=== PATIENT | male | born 1990 ===

== ENCOUNTER 2024-06-21 09:15 | Emergency (ER) | payer OTHER, SELFPAY ==
--- NOTE | ~2024-06-21 | XR_ITS ---
EXAMINATION: XR HAND, RIGHT CLINICAL INFORMATION: pain, injury . Concern for scaphoid injury. COMPARISON: None available. TECHNIQUE: PA, lateral, and oblique views of the right hand. FINDINGS: Soft tissue marker positioned at the level of the first metacarpal. There is angulation and apparent cortical offset of the radial aspect of the distal scaphoid, only visualized on one view. This raises the possibility of a fracture. No definite first metacarpal fracture is seen. There is bony overlap of the trapezium and trapezoid limiting evaluation. Osseous overlap at the carpometacarpal joints otherwise, with associated limitation in evaluation. No additional acute fracture is identified. XR/XR hand RT min 3V IMPRESSION: Angulation and apparent cortical offset of the radial aspect of the distal scaphoid, from possible fracture. No additional acute fractures identified. Bony overlap at the carpometacarpal joints limiting evaluation. Further evaluation with CT scan as clinically indicated. Electronically signed by: Mesfin Hand MD 06/21/2024 11:37 AM [facility]
--- NOTE | ~2024-06-21 | CT_ITS ---
EXAMINATION: CT HAND WITHOUT CONTRAST, RIGHT CLINICAL INFORMATION: Thumb pain. Evaluate scaphoid fracture. COMPARISON: X-ray from the same day TECHNIQUE: Axial imaging. Sagittal and coronal reconstructions. This CT examination was performed using dose optimization techniques as appropriate, variously including the following: *Automated exposure control *Adjustment of mA and/or kV according to patient size (this includes techniques or standardized protocols for targeted exams where dose is matched to indication/reason for exam; i.e. extremities or head) *Use of iterative reconstruction technique DLP: 125 mGy-cm FINDINGS: No acute scaphoid fracture is seen. No acute fracture otherwise identified. At the first CMC joint, the base of the first metacarpal is partially radially positioned with respect to the trapezium; this could be related to physiological variation versus partial subluxation. No acute fracture is identified in this region. The joint spaces are maintained. No erosive changes. Mild dorsal subcutaneous edema of the first digit. No fluid collection is seen. Limited evaluation of the tendons of CT. CT/CT hand RT wo IV con IMPRESSION: No CT evidence of acute scaphoid fracture. No acute fracture is otherwise identified. First CMC joint findings, described above, could be related to physiological variation versus partial subluxation. Clinically correlate. If there is clinical concern for radiographically occult osseous, soft tissue or ligamentous injury, orthopedic consultation and further imaging can be considered. Electronically signed by: Mesfin Hand MD 06/21/2024 02:42 PM [facility]
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
[2024-06-21 09:23] VITALS: BP 156/95; PULSE 72; O2SAT 100
[2024-06-21 09:25] VITALS: BP 159/89; PULSE 75; RESP 16; TEMP 36.6; O2SAT 100; BMI 34.0
[2024-06-21 09:29] VITALS: BP 159/89; PULSE 75; RESP 16; TEMP 36.6; O2SAT 100
[2024-06-21 14:11] VITALS: BP 159/89; PULSE 75; RESP 16; TEMP 36.6; O2SAT 100
== END 2024-06-21 14:12 | disposition home or self-care (01) ==
PROVIDERS: Emergency Provider Emergency Medicine Emergency Medical Services
DX: S62.001A Unspecified fracture of navicular [scaphoid] bone of right wrist, initial encounter for closed fracture (principal); V43.52XA Car driver injured in collision with other type car in traffic accident, initial encounter; Y93.9 Activity, unspecified; Y92.9 Unspecified place or not applicable; Y99.9 Unspecified external cause status; M79.644 Pain in right finger(s)
CPT/HCPCS: 73130; 73200; 99284

== ENCOUNTER 2024-06-25 10:54 | Outpatient (AMB) | payer OTHER, SELFPAY ==
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
[2024-06-25 11:37] VITALS: BMI 35.0
== END 2024-06-25 12:06 | disposition home or self-care (01) ==
PROVIDERS: Visit Provider Orthopaedic Surgery
DX: S60.221A Contusion of right hand, initial encounter (principal)
CPT/HCPCS: 99204

== ENCOUNTER 2024-06-25 15:53 | Outpatient (REF) | payer OTHER, SELFPAY | END 2024-06-25 15:54 | disposition home or self-care (01) | LOC: HO.HOSX 15:53 | PROVIDERS: Visit Provider Orthopaedic Surgery | DX: S60.221D Contusion of right hand, subsequent encounter (principal); V89.2XXD Person injured in unspecified motor-vehicle accident, traffic, subsequent encounter | CPT/HCPCS: 73130 ==